=== PATIENT | male | born 1995 | race Caucasian/White ===

== ENCOUNTER 2018-12-30 15:56 | Emergency (ER) | payer OTHER ==
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
[2018-12-30 18:13] VITALS: BP 126/68
[2018-12-30] MEDS ORDERED: KETOROLAC 15 MG/ML VIAL IVP STA (18:14)
[2018-12-30] MEDS ORDERED: IOVERSOL 320 100 ML VIAL IVP ONE ×2 (18:49→19:54)
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
== END 2018-12-30 20:40 | disposition home or self-care (01) ==
LOC: ED 15:56
DX: S16.1XXA Strain of muscle, fascia and tendon at neck level, initial encounter (principal); V89.2XXA Person injured in unspecified motor-vehicle accident, traffic, initial encounter
CPT/HCPCS: 72126; 96374; 99283; 99284; Q9967